=== PATIENT | female | born 1955 | race Caucasian/White ===

== ENCOUNTER → 2017-10-04 | Outpatient (CLI) | payer OTHER ==
[2013-12-05 12:49] VITALS: BP 132/76
== END ==
LOC: RAD 14:33
PROVIDERS: ATTEND Internal Medicine
DX: I20.9 Angina pectoris, unspecified (principal); R06.02 Shortness of breath; R42 Dizziness and giddiness; Z95.5 Presence of coronary angioplasty implant and graft; R51 Headache
CPT/HCPCS: 93306

== ENCOUNTER → 2017-10-09 | Outpatient (CLI) | payer OTHER ==
[2013-12-05 12:49] VITALS: BP 132/76
--- NOTE | 2017-10-09 16:17 | MRI ---
MRI BRAIN WITHOUT AND WITH CONTRAST CLINICAL HISTORY: 61-year-old female with headache and dizziness with giddiness. COMPARISON: None. TECHNIQUE: Multiplanar, multisequence MR images of the brain were obtained prior to and following th e uneventful intravenous administration of 18 mL Omniscan. FINDINGS: There is no evidence of diffusion restriction. The craniocervical junction is normal. Pituitary and o ptic nerve complex are normal. There are few scattered punctate T2 FLAIR signal hyperintensities are present within the periventricular and supraventricular white matter that are nonspecific in appearan ce but most likely to represent microvascular white matter ischemic changes. Normal signal characteri stics and morphology are demonstrated within the cerebral cortex, corpus callosum, deep chilel nuclei, brainstem and cerebellum. The major vascular channels opacify normally and the major vascular flow vo ids, to include the dural venous sinuses, are intact. No abnormal susceptibility on gradient imaging. Age advanced cortical volume loss is present, with commensurate sulcal and ventricular prominence. T he basilar cisterns are normal. There is no evidence of abnormal intracranial enhancement. The orbits and globes are within normal limits. The paranasal sinuses, tympanic cavities and mastoids are clear. IMPRESSION: 1. No acute ischemic or hemorrhagic insult. 2. No abnormal intracranial enhancement. 3. Mild, chronic microvascular white matter ischemic disease with associated volume loss. Reported By:
== END ==
LOC: RAD 13:47
PROVIDERS: ATTEND Internal Medicine
DX: R42 Dizziness and giddiness (principal); R51 Headache
CPT/HCPCS: 70553

== ENCOUNTER 2019-03-27 15:31 | Inpatient (IN) ==
[2019-03-27] MEDS ORDERED: TUSSIONEX PENNKINETIC SUSP PO PRN (17:20)
[2019-03-27 17:29] VITALS: BMI 31.4
[2019-03-27] MEDS: DUONEB 0.5 MG/3 MG NEB SCH ×2 (17:34→20:45)
[2019-03-27 17:59] LABS: BASOPHILS # (AUTO) 0.1 X10^3/uL (0.0-0.1); EOSINOPHILS # (AUTO) 0.5 x10^3/uL (0.0-0.2); EOSINOPHILS % (AUTO) 8.9 % (0.9-2.9); HEMATOCRIT 29.9 % (36.0-47.0); HEMOGLOBIN 9.9 g/dL (12.0-16.0); LYMPHOCYTES # (AUTO) 2.3 X10^3/uL (1.3-2.9); LYMPHOCYTES % (AUTO) 37.5 % (21.0-51.0); MEAN CORPUSCULAR HEMOGLOBIN 27.9 pg (27.0-34.0); MEAN CORPUSCULAR HGB CONC 33.3 g/dL (33.0-35.0); MEAN CORPUSCULAR VOLUME 83.8 fL (80.0-100.0); MONOCYTES # (AUTO) 0.5 x10^3/uL (0.3-0.8); MONOCYTES % (AUTO) 8.5 % (0.0-13.0); NEUTROPHILS # (AUTO) 2.7 x10^3/uL (2.2-4.8); NEUTROPHILS % (AUTO) 44.1 % (42.0-75.0); PLATELET COUNT 227 X10^3/uL (150.0-450.0); RED BLOOD COUNT 3.57 X10^6/uL (3.5-5.4); RED CELL DISTRIBUTION WIDTH 17.5 % (11.6-16.5)
[2019-03-27] MEDS ORDERED: LEVAQUIN PREMIX IV 750 MG 750 MG/150 ML BAG IV SCH (18:00)
[2019-03-27] MEDS ORDERED: FORTAZ or TAZICEF VIAL INJ 1 G in NS 100 ML IV + SPIKE MINIBAG* 100 ML IV SCH (18:00)
[2019-03-27 18:13] LABS: ALANINE AMINOTRANSFERASE 17 Units/L (12-78); ALBUMIN 3.4 g/dL (3.4-5.0); ALKALINE PHOSPHATASE 63 Units/L (46-116); ASPARTATE AMINO TRANSFERASE 16 Units/L (15-37); BLOOD UREA NITROGEN 15 mg/dL (7-18); CALCIUM 8.4 mg/dL (8.5-10.1); CARBON DIOXIDE 21.3 mmol/L (21-32); CHLORIDE 107 mmol/L (98-107); COR NA(FOR HYPERGLY) 141 mmol/L (136-145); CREATININE 1.37 mg/dL (0.55-1.02); SODIUM 140 mmol/L (136-145); TOTAL PROTEIN 7.4 g/dL (6.4-8.2); eGFR NON BLACK RACES 42 (>60)
[2019-03-27] MEDS ORDERED: NS 1/2 1000 ML IV 1,000 ML IV ONE (18:14)
[2019-03-27] MEDS: SOLU-Medrol 40 MG VIAL IVP SCH ×2 (18:30→21:03)
[2019-03-27] MEDS: NS 1/2 1000 ML IV 1,000 ML IV SCH (18:30)
[2019-03-27] MEDS: ROBITUSSIN DM PO SCH ×2 (18:35→20:12)
[2019-03-27] MEDS: VSL#3 PO SCH (18:36)
[2019-03-27] MEDS ORDERED: RESTORIL CAP 15 MG PO PRN (18:41)
[2019-03-27] MEDS: LEVAQUIN PREMIX IV 750 MG 750 MG/150 ML BAG IV SCH (19:16)
[2019-03-27] MEDS: COLACE CAP 100 MG PO SCH (20:11)
[2019-03-27] MEDS: MILK OF MAGNESIA PO SCH (20:12)
[2019-03-28] MEDS: DUONEB 0.5 MG/3 MG NEB SCH (00:39)
[2019-03-28] MEDS ORDERED: TYLENOL 325 MG TAB PO PRN (00:55)
[2019-03-28 05:01] LABS: BASOPHILS % (AUTO) 0.5 % (0.2-1.0); EOSINOPHILS % (AUTO) 0.1 % (0.9-2.9); HEMATOCRIT 27.9 % (36.0-47.0); HEMOGLOBIN 9.2 g/dL (12.0-16.0); LYMPHOCYTES # (AUTO) 0.6 X10^3/uL (1.3-2.9); LYMPHOCYTES % (AUTO) 15.3 % (21.0-51.0); MEAN CORPUSCULAR HEMOGLOBIN 27.9 pg (27.0-34.0); MEAN CORPUSCULAR VOLUME 84.5 fL (80.0-100.0); MEAN PLATELET VOLUME 7.1 fL (7.4-11.0); MONOCYTES # (AUTO) 0.1 x10^3/uL (0.3-0.8); MONOCYTES % (AUTO) 2.2 % (0.0-13.0); NEUTROPHILS % (AUTO) 81.9 % (42.0-75.0); PLATELET COUNT 218 X10^3/uL (150.0-450.0); RED CELL DISTRIBUTION WIDTH 17.3 % (11.6-16.5); WHITE BLOOD COUNT 3.7 X10^3/uL (3.6-10.0)
[2019-03-28 05:09] LABS: ALBUMIN 3.3 g/dL (3.4-5.0); CALCIUM 8.4 mg/dL (8.5-10.1); CARBON DIOXIDE 19.1 mmol/L (21-32); CREATININE 1.35 mg/dL (0.55-1.02); TOTAL PROTEIN 7.3 g/dL (6.4-8.2)
[2019-03-28] MEDS: SOLU-Medrol 40 MG VIAL IVP SCH ×3 (05:09→21:04)
[2019-03-28] MEDS ORDERED: POTASSIUM CHL 60 MEQ/NS 0.45% 500 ML IV PRN (05:41)
[2019-03-28] MEDS ORDERED: K-RIDER 10 MEQ/NS 100 ML 10 MEQ/100 ML BAG IV PRN (05:41)
[2019-03-28] MEDS ORDERED: POTASSIUM CHL 40 MEQ/NS 0.45% 500 ML IV PRN (05:41)
[2019-03-28] MEDS ORDERED: KLOR-CON PO PRN (05:41)
[2019-03-28] MEDS ORDERED: POTASSIUM CHLORIDE LIQ 20 MEQ UDC PO PRN (05:41)
[2019-03-28] MEDS ORDERED: MAGNESIUM SULFATE 1 GRAM/100 mL PREMIX 1 GM/100 ML BAG IV PRN (05:41)
[2019-03-28] MEDS ORDERED: MICRO K EXTEN CAP 10 MEQ PO PRN (05:41)
[2019-03-28] MEDS: K-DUR TAB 20 MEQ PO PRN (05:55)
--- NOTE | 2019-03-28 06:10 | RAD ---
CHEST RADIOGRAPHS PA AND LATERAL VIEWS CLINICAL HISTORY: 63-year-old female with pneumonia and cough for 2-3 weeks. History of asthma. COMPARISON: Chest radiograph 03/10/2019. FINDINGS: The cardiopericardial silhouette is stable with mild prominence of the interstitium and perihilar lung markings. There is no focal consolidation, pleural effusion or pneumothorax. The lungs are well inflated. Pulmonary vascularity is normal. Imaged osseous structures are intact. Soft tissues are unremarkable. IMPRESSION: No acute cardiopulmonary process with findings consistent with history of asthma. Reported By:
--- NOTE | 2019-03-28 06:50 | RAD ---
HISTORY: 63-year-old female with shortness of breath. History of asthma. Study: Frontal view of the chest. Comparison: Chest radiographs 03/28/2019, 19 minutes ago. Findings: The trachea is midline. The cardiac silhouette is stable with stable findings consistent with history of asthma. The lungs are clear without focal consolidation, effusion or pneumothorax. Soft tissues are unremarkable. Osseous structures are unremarkable. IMPRESSION: 1. No acute cardiopulmonary disease in a patient with history of asthma. Reported By:
[2019-03-28] MEDS: XOPENEX 1.25 MG/3 ML NEBULE NEB SCH ×3 (08:27→17:14)
[2019-03-28] MEDS: MILK OF MAGNESIA PO SCH ×2 (08:54→21:05)
[2019-03-28] MEDS: ROBITUSSIN DM PO SCH ×4 (08:54→21:05)
[2019-03-28] MEDS: VSL#3 PO SCH (08:54)
[2019-03-28] MEDS: FORTAZ or TAZICEF VIAL INJ 1 G in NS 100 ML IV + SPIKE MINIBAG* 100 ML IV SCH ×2 (08:56→21:04)
[2019-03-28] MEDS ORDERED: NS 1/2 1000 ML IV 1,000 ML IV ONE (08:58)
[2019-03-28] MEDS: NS 1/2 1000 ML IV 1,000 ML IV SCH (08:59)
[2019-03-28] MEDS ORDERED: DUONEB 0.5 MG/3 MG NEB SCH (09:00)
--- NOTE | 2019-03-28 11:29 | DR.UPDATE ---
H&P Update History and Physical Update: History and Physical reviewed and patient examined. Changes noted: Yes with the following: WAS SEEN IN THE OFFICE TODAY FOR COMPLAINTS OF PERSISTENT, PRODUCTIVE COUGH AND SHORTNESS OF BREATH. SHE HAS BEEN TAKING CIPRO 500MG PO X 2 WEEKS WITHOUT IMPROVMEENT IN SYMPTOMS. SHE WAS ADMITTED FOR [facility] EVALUATION AND TREATMENT OF BRONCHOPNEUMONIA. ON ADMISSION, WE WILL START THE PNEUMONIA PROTOCOL WITH IV FORTAZ, IV LEVAQUIN, RESPIRATORY TREATMENTS, SUPPLEMENTAL OXYGEN. WE WILL OBTAIN LABS, CHEST XRAY, BLOOD AND SPUTUM CULTURES. OTHERWISE, WE WILL REPEAT AM LABS AND CHEST XRAY AND CONTINUE TO MONITOR. Prescription drug monitoring program results: PDMP was not reviewed H&P Reviewed: Yes Patient was examined?: Yes
[2019-03-28] MEDS ORDERED: CARDIZEM CD 120 MG 24-HR PO ONE (11:33)
[2019-03-28] MEDS ORDERED: NexIUM ONE (11:33)
[2019-03-28] MEDS ORDERED: NORCO 10/325 TAB ONE (11:33)
[2019-03-28] MEDS: CARDIZEM CD 120 MG 24-HR PO SCH (11:34)
[2019-03-28] MEDS: NORCO 10/325 TAB PO SCH ×2 (12:00→18:15)
[2019-03-28] MEDS: NexIUM PO SCH (12:01)
[2019-03-28] MEDS: VALIUM PO SCH ×3 (12:10→21:05)
[2019-03-28] MEDS: NEURONTIN CAP 300 MG PO SCH ×2 (14:49→21:05)
[2019-03-28] MEDS: LOVENOX INJ 40 MG SYR SC SCH (14:52)
[2019-03-28] MEDS: LEVAQUIN PREMIX IV 750 MG 750 MG/150 ML BAG IV SCH (18:16)
[2019-03-28] MEDS ORDERED: ZOCOR TAB 40 MG PO SCH (21:00)
[2019-03-28] MEDS: COLACE CAP 100 MG PO SCH (21:05)
--- NOTE | 2019-03-28 21:09 | PCM.PROG ---
Progress Note - Progress Note for Day of Date of Exam: 03/28/19 - Subjective Subjective: IS BEING TREATED FOR BRONCHOPNEUMONIA. TODAY, SHE IS ALERT AND ORIENTED, LYING IN BED ON MORNING ROUNDS. SHE CONTINUES WITH COMPLAINTS OF SHORTNESS OF BREATH AND COUGH, BUT REPORTS SLIGHT IMPROVEMENT IN SYMPTOMS SINCE YESTERDAY. ON EXAMINATION, HEART IS REGULAR IN RATE AND RHYTHM. BILATERAL LUNGS ARE NOTED WITH DIMINISHED LUNG SOUNDS THROUGHOUT. ABDOMEN IS ROUND, SOFT, AND NON-TENDER WITH NORMAL BOWEL SOUNDS NOTED IN ALL QUADRANTS. HER VITALS THIS MORNING ARE: 98.7-103-20-98%-135/58. LABS WERE OBTAINED. ABNORMAL LAB VALUES INCLUDE THE FOLLOWING: RBC 3.30, HGB 9.2, HCT 27.9, POTASSIUM 3.3, CARBON DIOXIDE 19.1, CREATININE 1.35, GLUCOSE 190, CALCIUM 8.4, ALBUMIN 3.3. BLOOD AND SPUTUM CULTURES ARE PENDING. A CHEST XRAY WAS OBTAINED AND REVEALED: No acute cardiopulmonary disease in a patient with history of asthma. SHE IS CURRENTLY RECEIVING LEVAQUIN 750MG IV DAILY, FORTAZ 1G IV Q8H, SOLU-MEDROL 80MG IV Q8H, RESPIRATORY TX, AND 1/2NS AT 75ML/HR. WE WILL CONTINUE WITH CURRENT PLAN OF CARE TODAY AND START VALIUM 5MG PO TID. OTHERWISE, WE WILL FOLLOW UP WITH AM LABS AND CONTINUE TO MONITOR. - Past Medical Family Social History Past Med/Fam/Surg Hx: No changes since H&P Allergies: Allergies ketorolac [From Toradol] Allergy (Verified 03/10/19 16:54) metoclopramide [From Reglan] Allergy (Verified 03/10/19 16:54) tramadol Allergy (Verified 03/10/19 16:54) - Review of Systems ROS: No change since H&P - Vital Signs and I&O's Vital Signs: Temperature 98.8 F Pulse Rate [Left Brachial] 95 Pulse Rate 84 Respiratory Rate 16 Blood Pressure [Right Arm] 133/62 Blood Pressure [Left Arm] 116/56 Blood Pressure 142/63 O2 Sat by Pulse Oximetry 99 Intake and Output: Intake & Output 03/26/19 03/27/19 03/28/19 03/29/19 11:59 11:59 11:59 11:59 Intake Total 1455 / 1455 1396 / 1396 Output Total 1500 / 1500 Balance 1455 / 1455 -104 / -104 - Physical Exam Oriented: Normal Eyes: Normal Ear: Normal Nose: Normal Throat: Normal Respiratory: Generalized, Wheezes Cardiovascular: Normal : Normal Auscultation: Bowel Sounds: Normal Palpation: Normal Tenderness: Normal Skin: Normal Musculoskeletal: Normal Psychiatric: Anxiety Mood Description: Anxious Affect: Anxious Speech Pattern: Clear, Appropriate - Laboratory and Diagnostics Result Diagrams: 03/28/19 04:03 03/28/19 08:20 Labs: 03/27/19 16:56 Sputum - Expectorated Sputum Sputum Culture - Preliminary 03/27/19 16:56 Sputum - Expectorated Sputum - Final Laboratory WBC 3.7 X10^3/uL (3.6-10.0) 03/28/19 04:03 RBC 3.30 X10^6/uL (3.5-5.4) L 03/28/19 04:03 Hgb 9.2 g/dL (12.0-16.0) L 03/28/19 04:03 Hct 27.9 % (36.0-47.0) L 03/28/19 04:03 MCV 84.5 fL (80.0-100.0) 03/28/19 04:03 MCH 27.9 pg (27.0-34.0) 03/28/19 04:03 MCHC 33.0 g/dL (33.0-35.0) 03/28/19 04:03 RDW 17.3 % (11.6-16.5) H 03/28/19 04:03 Plt Count 218 X10^3/uL (150.0-450.0) 03/28/19 04:03 MPV 7.1 fL (7.4-11.0) L 03/28/19 04:03 Neut % (Auto) 81.9 % (42.0-75.0) H 03/28/19 04:03 Lymph % (Auto) 15.3 % (21.0-51.0) L 03/28/19 04:03 [place] % (Auto) 2.2 % (0.0-13.0) 03/28/19 04:03 Eos % (Auto) 0.1 % (0.9-2.9) L 03/28/19 04:03 Baso % (Auto) 0.5 % (0.2-1.0) 03/28/19 04:03 Neut # (Auto) 3.0 x10^3/uL (2.2-4.8) 03/28/19 04:03 Lymph # (Auto) 0.6 X10^3/uL (1.3-2.9) L 03/28/19 04:03 [place] # (Auto) 0.1 x10^3/uL (0.3-0.8) L 03/28/19 04:03 Eos # (Auto) 0.0 x10^3/uL (0.0-0.2) 03/28/19 04:03 Baso # (Auto) 0.0 X10^3/uL (0.0-0.1) 03/28/19 04:03 Absolute Nucleated RBC 0.1 /100WBC 03/28/19 04:03 Sodium 140 mmol/L (136-145) 03/28/19 04:03 Corrected Sodium 142 mmol/L (136-145) 03/28/19 04:03 Potassium 3.8 mmol/L (3.5-5.1) 03/28/19 08:20 Chloride 105 mmol/L (98-107) 03/28/19 04:03 Carbon Dioxide 19.1 mmol/L (21-32) L 03/28/19 04:03 BUN 12 mg/dL (7-18) 03/28/19 04:03 Creatinine 1.35 mg/dL (0.55-1.02) H 03/28/19 04:03 Est GFR (MDRD) Af Amer 51 (>60) L 03/28/19 04:03 Est GFR (MDRD) Non-Af 42 (>60) L 03/28/19 04:03 Glucose 190 mg/dL (65-99) H 03/28/19 04:03 Calcium 8.4 mg/dL (8.5-10.1) L 03/28/19 04:03 Corrected Calcium 9.0 mg/dL (8.5-10.1) 03/28/19 04:03 Magnesium 1.9 mg/dL (1.7-2.9) 03/28/19 04:03 Total Bilirubin 0.20 mg/dL (0.2-1.0) 03/28/19 04:03 AST 17 Units/L (15-37) 03/28/19 04:03 ALT 17 Units/L (12-78) 03/28/19 04:03 Alkaline Phosphatase 56 Units/L (46-116) 03/28/19 04:03 Total Protein 7.3 g/dL (6.4-8.2) 03/28/19 04:03 Albumin 3.3 g/dL (3.4-5.0) L 03/28/19 04:03 Globulin 4.0 g/dL (2.5-4.5) 03/28/19 04:03 Albumin/Globulin Ratio 0.8 Ratio (1.1-2.1) L 03/28/19 04:03 - Plan (1) Bronchopneumonia Status: Acute Plan: LEVAQUIN IV, FORTAZ IV, SOLU-MEDROL IV, RESPIRATORY TX, SUPPLEMENTAL OXYGEN, CONTINUE TO MONITOR.
[2019-03-29] MEDS: XOPENEX 1.25 MG/3 ML NEBULE NEB SCH ×4 (00:50→17:10)
[2019-03-29] MEDS ORDERED: NS 1/2 1000 ML IV 1,000 ML IV ONE ×2 (01:19→23:31)
[2019-03-29] MEDS: NORCO 10/325 TAB PO SCH ×4 (01:21→17:05)
[2019-03-29] MEDS: NS 1/2 1000 ML IV 1,000 ML IV SCH ×3 (01:22→23:37)
[2019-03-29 04:52] LABS: BASOPHILS % (AUTO) 0 % (0.2-1.0); HEMATOCRIT 26.6 % (36.0-47.0); HEMOGLOBIN 8.8 g/dL (12.0-16.0); LYMPHOCYTES # (AUTO) 1.1 X10^3/uL (1.3-2.9); LYMPHOCYTES % (AUTO) 8.6 % (21.0-51.0); MEAN CORPUSCULAR HEMOGLOBIN 27.8 pg (27.0-34.0); MEAN CORPUSCULAR HGB CONC 32.9 g/dL (33.0-35.0); MEAN CORPUSCULAR VOLUME 84.3 fL (80.0-100.0); MEAN PLATELET VOLUME 7.5 fL (7.4-11.0); MONOCYTES # (AUTO) 0.5 x10^3/uL (0.3-0.8); NEUTROPHILS # (AUTO) 11.7 x10^3/uL (2.2-4.8); NEUTROPHILS % (AUTO) 87.4 % (42.0-75.0); PLATELET COUNT 234 X10^3/uL (150.0-450.0); RED BLOOD COUNT 3.16 X10^6/uL (3.5-5.4); RED CELL DISTRIBUTION WIDTH 17.8 % (11.6-16.5)
[2019-03-29] MEDS: NEURONTIN CAP 300 MG PO SCH ×3 (04:59→21:04)
[2019-03-29] MEDS: SOLU-Medrol 40 MG VIAL IVP SCH ×3 (05:00→21:04)
[2019-03-29] MEDS: VALIUM PO SCH ×3 (05:00→21:04)
[2019-03-29 05:01] LABS: ALANINE AMINOTRANSFERASE 17 Units/L (12-78); ALBUMIN 3.2 g/dL (3.4-5.0); ALKALINE PHOSPHATASE 48 Units/L (46-116); ASPARTATE AMINO TRANSFERASE 15 Units/L (15-37); BLOOD UREA NITROGEN 13 mg/dL (7-18); CALCIUM 8.1 mg/dL (8.5-10.1); CARBON DIOXIDE 22.9 mmol/L (21-32); CHLORIDE 107 mmol/L (98-107); COR CA(FOR HYPOALB) 8.7 mg/dL (8.5-10.1); COR NA(FOR HYPERGLY) 141 mmol/L (136-145); CREATININE 1.11 mg/dL (0.55-1.02); SODIUM 140 mmol/L (136-145); TOTAL PROTEIN 6.7 g/dL (6.4-8.2); eGFR NON BLACK RACES 53 (>60)
[2019-03-29 06:10] LABS: WHITE BLOOD COUNT 13.4 X10^3/uL (3.6-10.0)
--- NOTE | 2019-03-29 06:16 | RAD ---
HISTORY: Shortness of breath Study: Single view chest Comparison: 03/28/2019 Findings: Single upright portable view is submitted. No infiltrate, effusion or pneumothorax identified. The cardiac and mediastinal contours are within normal limits. The soft tissues are unremarkable. IMPRESSION: 1. No acute cardiopulmonary abnormality. Reported By:
[2019-03-29] MEDS: NexIUM PO SCH (08:50)
[2019-03-29] MEDS: CARDIZEM CD 120 MG 24-HR PO SCH (08:51)
[2019-03-29] MEDS: MILK OF MAGNESIA PO SCH ×2 (08:51→20:46)
[2019-03-29] MEDS: VSL#3 PO SCH (08:51)
[2019-03-29] MEDS: ROBITUSSIN DM PO SCH ×4 (08:52→20:46)
[2019-03-29] MEDS: FORTAZ or TAZICEF VIAL INJ 1 G in NS 100 ML IV + SPIKE MINIBAG* 100 ML IV SCH ×2 (08:52→20:47)
[2019-03-29] MEDS: LOVENOX INJ 40 MG SYR SC SCH (08:53)
[2019-03-29] MEDS: LEVAQUIN PREMIX IV 750 MG 750 MG/150 ML BAG IV SCH (08:53)
[2019-03-29] MEDS: PHENERGAN TAB 25 MG PO PRN (17:05)
[2019-03-29] MEDS: COLACE CAP 100 MG PO SCH (20:46)
[2019-03-30] MEDS: XOPENEX 1.25 MG/3 ML NEBULE NEB SCH ×4 (00:33→17:37)
[2019-03-30] MEDS: NS 1/2 1000 ML IV 1,000 ML IV SCH ×2 (02:58→17:09)
[2019-03-30 05:37] LABS: BASOPHILS % (AUTO) 0 % (0.2-1.0); HEMATOCRIT 25.7 % (36.0-47.0); HEMOGLOBIN 8.5 g/dL (12.0-16.0); LYMPHOCYTES % (AUTO) 9.3 % (21.0-51.0); MEAN CORPUSCULAR HEMOGLOBIN 28.2 pg (27.0-34.0); MEAN CORPUSCULAR VOLUME 85.3 fL (80.0-100.0); MEAN PLATELET VOLUME 7.7 fL (7.4-11.0); MONOCYTES # (AUTO) 0.3 x10^3/uL (0.3-0.8); MONOCYTES % (AUTO) 3.1 % (0.0-13.0); NEUTROPHILS # (AUTO) 9.8 x10^3/uL (2.2-4.8); NEUTROPHILS % (AUTO) 87.6 % (42.0-75.0); PLATELET COUNT 230 X10^3/uL (150.0-450.0); RED BLOOD COUNT 3.01 X10^6/uL (3.5-5.4); RED CELL DISTRIBUTION WIDTH 17.6 % (11.6-16.5); WHITE BLOOD COUNT 11.2 X10^3/uL (3.6-10.0)
[2019-03-30 05:51] LABS: ALANINE AMINOTRANSFERASE 12 Units/L (12-78); ALKALINE PHOSPHATASE 44 Units/L (46-116); ASPARTATE AMINO TRANSFERASE 13 Units/L (15-37); BLOOD UREA NITROGEN 16 mg/dL (7-18); CALCIUM 7.8 mg/dL (8.5-10.1); CARBON DIOXIDE 25.6 mmol/L (21-32); CHLORIDE 106 mmol/L (98-107); COR CA(FOR HYPOALB) 8.6 mg/dL (8.5-10.1); COR NA(FOR HYPERGLY) 141 mmol/L (136-145); CREATININE 0.94 mg/dL (0.55-1.02); SODIUM 140 mmol/L (136-145); TOTAL PROTEIN 6.3 g/dL (6.4-8.2); eGFR NON BLACK RACES > 60 (>60)
[2019-03-30] MEDS: NEURONTIN CAP 300 MG PO SCH ×3 (05:53→21:48)
[2019-03-30] MEDS: SOLU-Medrol 40 MG VIAL IVP SCH ×2 (05:53→13:16)
[2019-03-30] MEDS: NORCO 10/325 TAB PO SCH ×4 (05:53→17:07)
[2019-03-30] MEDS: VALIUM PO SCH ×3 (05:53→21:49)
[2019-03-30] MEDS: FORTAZ or TAZICEF VIAL INJ 1 G in NS 100 ML IV + SPIKE MINIBAG* 100 ML IV SCH ×2 (09:51→21:49)
[2019-03-30] MEDS: MILK OF MAGNESIA PO SCH ×2 (09:51→21:49)
[2019-03-30] MEDS: LOVENOX INJ 40 MG SYR SC SCH (09:52)
[2019-03-30] MEDS: CARDIZEM CD 120 MG 24-HR PO SCH (09:52)
[2019-03-30] MEDS: VSL#3 PO SCH (09:52)
[2019-03-30] MEDS: ROBITUSSIN DM PO SCH ×4 (09:52→21:49)
[2019-03-30] MEDS: NexIUM PO SCH (09:57)
[2019-03-30] MEDS ORDERED: NS 1/2 1000 ML IV 1,000 ML IV ONE (17:06)
[2019-03-30] MEDS: COLACE CAP 100 MG PO SCH (21:49)
[2019-03-31] MEDS: XOPENEX 1.25 MG/3 ML NEBULE NEB SCH ×4 (00:10→17:14)
[2019-03-31] MEDS: NORCO 10/325 TAB PO SCH ×4 (01:23→18:06)
[2019-03-31] MEDS: PHENERGAN TAB 25 MG PO PRN ×2 (01:34→09:23)
[2019-03-31] MEDS ORDERED: NS 1/2 1000 ML IV 1,000 ML IV ONE (03:45)
[2019-03-31] MEDS: NS 1/2 1000 ML IV 1,000 ML IV SCH ×3 (04:52→21:36)
[2019-03-31 05:27] LABS: BASOPHILS % (AUTO) 0 % (0.2-1.0); HEMATOCRIT 25.1 % (36.0-47.0); HEMOGLOBIN 8.3 g/dL (12.0-16.0); LYMPHOCYTES # (AUTO) 1.2 X10^3/uL (1.3-2.9); LYMPHOCYTES % (AUTO) 14.9 % (21.0-51.0); MEAN CORPUSCULAR HGB CONC 32.9 g/dL (33.0-35.0); MEAN PLATELET VOLUME 7.8 fL (7.4-11.0); MONOCYTES # (AUTO) 0.6 x10^3/uL (0.3-0.8); MONOCYTES % (AUTO) 7.7 % (0.0-13.0); NEUTROPHILS # (AUTO) 6.4 x10^3/uL (2.2-4.8); NEUTROPHILS % (AUTO) 77.4 % (42.0-75.0); PLATELET COUNT 235 X10^3/uL (150.0-450.0); RED BLOOD COUNT 2.95 X10^6/uL (3.5-5.4); RED CELL DISTRIBUTION WIDTH 17.9 % (11.6-16.5); WHITE BLOOD COUNT 8.3 X10^3/uL (3.6-10.0)
[2019-03-31 05:46] LABS: ALANINE AMINOTRANSFERASE 13 Units/L (12-78); ALBUMIN 2.8 g/dL (3.4-5.0); ALKALINE PHOSPHATASE 39 Units/L (46-116); ASPARTATE AMINO TRANSFERASE 11 Units/L (15-37); BLOOD UREA NITROGEN 19 mg/dL (7-18); CALCIUM 7.4 mg/dL (8.5-10.1); CARBON DIOXIDE 26.7 mmol/L (21-32); CHLORIDE 106 mmol/L (98-107); COR CA(FOR HYPOALB) 8.4 mg/dL (8.5-10.1); COR NA(FOR HYPERGLY) 140 mmol/L (136-145); CREATININE 0.94 mg/dL (0.55-1.02); SODIUM 140 mmol/L (136-145); eGFR NON BLACK RACES > 60 (>60)
[2019-03-31] MEDS: NEURONTIN CAP 300 MG PO SCH ×3 (06:26→21:38)
[2019-03-31] MEDS: VALIUM PO SCH ×3 (06:27→21:38)
--- NOTE | 2019-03-31 08:52 | RAD ---
Exam: Chest two views History: 63-year-old female with pneumonia Comparison: Previous chest radiograph from 03/30/2019. Findings: Heart size and pulmonary vasculature are normal. Lungs are clear with no infiltrate or significant effusion on either side. Bony thorax is unremarkable as well. Impression: No acute cardiopulmonary abnormality is seen on this exam Reported By:
[2019-03-31] MEDS: FORTAZ or TAZICEF VIAL INJ 1 G in NS 100 ML IV + SPIKE MINIBAG* 100 ML IV SCH ×2 (09:07→21:37)
[2019-03-31] MEDS: LEVAQUIN PREMIX IV 750 MG 750 MG/150 ML BAG IV SCH (09:08)
[2019-03-31] MEDS: NexIUM PO SCH (09:09)
[2019-03-31] MEDS: ROBITUSSIN DM PO SCH ×4 (09:09→21:37)
[2019-03-31] MEDS: MILK OF MAGNESIA PO SCH ×2 (09:09→21:37)
[2019-03-31] MEDS: VSL#3 PO SCH (09:09)
[2019-03-31] MEDS: CARDIZEM CD 120 MG 24-HR PO SCH (09:09)
[2019-03-31] MEDS: LOVENOX INJ 40 MG SYR SC SCH (09:10)
--- NOTE | 2019-03-31 12:47 | PCM.PROG ---
Progress Note - Progress Note for Day of Date of Exam: 03/29/19 - Subjective Subjective: IS BEING TREATED FOR BRONCHOPNEUMONIA. TODAY, SHE IS ALERT AND ORIENTED, LYING IN BED ON MORNING ROUNDS. SHE CONTINUES WITH COMPLAINTS OF SHORTNESS OF BREATH AND COUGH, BUT REPORTS SLIGHT IMPROVEMENT IN SYMPTOMS SINCE YESTERDAY. ON EXAMINATION, HEART IS REGULAR IN RATE AND RHYTHM. BILATERAL LUNGS ARE NOTED WITH DIMINISHED LUNG SOUNDS THROUGHOUT. ABDOMEN IS ROUND, SOFT, AND NON-TENDER WITH NORMAL BOWEL SOUNDS NOTED IN ALL QUADRANTS. HER VITALS THIS MORNING ARE: 98.2-100-22-97%-127/60. LABS WERE OBTAINED. ABNORMAL LAB VALUES INCLUDE THE FOLLOWING: WBC 13.4, RBC 3.16, HGB 8.8, HCT 26.6, CREATININE 1.11, GLUCOSE 140, CALCIUM 8.1, ALBUMIN 3.2. BLOOD AND SPUTUM CULTURES ARE PENDING. A CHEST XRAY WAS OBTAINED AND REVEALED: No acute cardiopulmonary abnormality. SHE IS CURRENTLY RECEIVING LEVAQUIN 750MG IV DAILY, FORTAZ 1G IV Q8H, SOLU-MEDROL 80MG IV Q8H, RESPIRATORY TX, AND 1/2NS AT 75ML/HR, VALIUM 5MG PO TID, AND HOME MEDICATIONS WERE RESUMED. WE WILL CONTINUE WITH CURRENT PLAN OF CARE TODAY. OTHERWISE, WE WILL FOLLOW UP WITH AM LABS AND CONTINUE TO MONITOR. - Past Medical Family Social History Past Med/Fam/Surg Hx: No changes since H&P Allergies: Allergies ketorolac [From Toradol] Allergy (Verified 03/10/19 16:54) metoclopramide [From Reglan] Allergy (Verified 03/10/19 16:54) tramadol Allergy (Verified 03/10/19 16:54) - Review of Systems ROS: No change since H&P - Vital Signs and I&O's Vital Signs: Temperature 98.3 F Pulse Rate [Left Brachial] 60 Pulse Rate 74 Respiratory Rate 18 Blood Pressure [Right Arm] 107/50 Blood Pressure [Left Arm] 116/56 Blood Pressure 142/63 O2 Sat by Pulse Oximetry 95 Intake and Output: Intake & Output 03/29/19 03/30/19 03/31/19 04/01/19 11:59 11:59 11:59 11:59 Intake Total 3498 / 3498 1861 / 1861 2140 / 2140 Output Total 1500 / 1500 Balance 1997 1862 / 1862 2140 / 2140 - Physical Exam Oriented: Normal Eyes: Normal Ear: Normal Nose: Normal Throat: Normal Respiratory: Generalized, Wheezes Cardiovascular: Normal : Normal Auscultation: Bowel Sounds: Normal Palpation: Normal Tenderness: Normal Skin: Normal Musculoskeletal: Normal Psychiatric: Anxiety Mood Description: Anxious Affect: Anxious Speech Pattern: Clear, Appropriate - Laboratory and Diagnostics Result Diagrams: 03/31/19 04:40 03/31/19 04:40 Labs: 03/27/19 16:56 Sputum - Expectorated Sputum Sputum Culture - Final Stenotrophomonas Maltophilia 03/27/19 16:56 Sputum - Expectorated Sputum - Final 03/27/19 17:45 Blood Blood Culture - Preliminary 03/27/19 17:36 Blood Blood Culture - Preliminary Laboratory WBC 8.3 X10^3/uL (3.6-10.0) 03/31/19 04:40 RBC 2.95 X10^6/uL (3.5-5.4) L 03/31/19 04:40 Hgb 8.3 g/dL (12.0-16.0) L 03/31/19 04:40 Hct 25.1 % (36.0-47.0) L 03/31/19 04:40 MCV 85.0 fL (80.0-100.0) 03/31/19 04:40 MCH 28.0 pg (27.0-34.0) 03/31/19 04:40 MCHC 32.9 g/dL (33.0-35.0) L 03/31/19 04:40 RDW 17.9 % (11.6-16.5) H 03/31/19 04:40 Plt Count 235 X10^3/uL (150.0-450.0) 03/31/19 04:40 MPV 7.8 fL (7.4-11.0) 03/31/19 04:40 Neut % (Auto) 77.4 % (42.0-75.0) H 03/31/19 04:40 Lymph % (Auto) 14.9 % (21.0-51.0) L 03/31/19 04:40 [place] % (Auto) 7.7 % (0.0-13.0) 03/31/19 04:40 Eos % (Auto) 0.0 % (0.9-2.9) L 03/31/19 04:40 Baso % (Auto) 0 % (0.2-1.0) L 03/31/19 04:40 Neut # (Auto) 6.4 x10^3/uL (2.2-4.8) H 03/31/19 04:40 Lymph # (Auto) 1.2 X10^3/uL (1.3-2.9) L 03/31/19 04:40 [place] # (Auto) 0.6 x10^3/uL (0.3-0.8) 03/31/19 04:40 Eos # (Auto) 0.0 x10^3/uL (0.0-0.2) 03/31/19 04:40 Baso # (Auto) 0.0 X10^3/uL (0.0-0.1) 03/31/19 04:40 Absolute Nucleated RBC 0.1 /100WBC 03/31/19 04:40 Sodium 140 mmol/L (136-145) 03/31/19 04:40 Corrected Sodium 140 mmol/L (136-145) 03/31/19 04:40 Potassium 3.8 mmol/L (3.5-5.1) 03/31/19 04:40 Chloride 106 mmol/L (98-107) 03/31/19 04:40 Carbon Dioxide 26.7 mmol/L (21-32) 03/31/19 04:40 BUN 19 mg/dL (7-18) H 03/31/19 04:40 Creatinine 0.94 mg/dL (0.55-1.02) 03/31/19 04:40 Est GFR (MDRD) Af Amer > 60 (>60) 03/31/19 04:40 Est GFR (MDRD) Non-Af > 60 (>60) 03/31/19 04:40 Glucose 114 mg/dL (65-99) H 03/31/19 04:40 Calcium 7.4 mg/dL (8.5-10.1) L 03/31/19 04:40 Corrected Calcium 8.4 mg/dL (8.5-10.1) L 03/31/19 04:40 Magnesium 1.9 mg/dL (1.7-2.9) 03/28/19 04:03 Total Bilirubin 0.20 mg/dL (0.2-1.0) 03/31/19 04:40 AST 11 Units/L (15-37) L 03/31/19 04:40 ALT 13 Units/L (12-78) 03/31/19 04:40 Alkaline Phosphatase 39 Units/L (46-116) L 03/31/19 04:40 Total Protein 6.0 g/dL (6.4-8.2) L 03/31/19 04:40 Albumin 2.8 g/dL (3.4-5.0) L 03/31/19 04:40 Globulin 3.2 g/dL (2.5-4.5) 03/31/19 04:40 Albumin/Globulin Ratio 0.9 Ratio (1.1-2.1) L 03/31/19 04:40 - Plan (1) Bronchopneumonia Status: Acute Plan: LEVAQUIN IV, FORTAZ IV, SOLU-MEDROL IV, RESPIRATORY TX, SUPPLEMENTAL OXYGEN, CONTINUE TO MONITOR.
--- NOTE | 2019-03-31 20:14 | PCM.PROG ---
Progress Note - Progress Note for Day of Date of Exam: 03/30/19 - Subjective Subjective: IS BEING TREATED FOR BRONCHOPNEUMONIA. TODAY, SHE IS ALERT AND ORIENTED, LYING IN BED ON MORNING ROUNDS. SHE CONTINUES WITH COMPLAINTS OF SHORTNESS OF BREATH AND COUGH, BUT REPORTS SLIGHT IMPROVEMENT IN SYMPTOMS SINCE YESTERDAY. ON EXAMINATION, HEART IS REGULAR IN RATE AND RHYTHM. BILATERAL LUNGS ARE NOTED WITH DIMINISHED LUNG SOUNDS THROUGHOUT. ABDOMEN IS ROUND, SOFT, AND NON-TENDER WITH NORMAL BOWEL SOUNDS NOTED IN ALL QUADRANTS. HER VITALS THIS MORNING ARE: 98.2-100-22-97%-127/60. LABS WERE OBTAINED. ABNORMAL LAB VALUES INCLUDE THE FOLLOWING: WBC 11.2, RBC 3.01, HGB 8.5, HCT 25.7, GLUCOSE 133, CALCIUM 7.8, AST 13, ALK PHOS 44, TOTAL PROTEIN 6.3, ALBUMIN 3.0. SPUTUM CULTURE REPORTS GROWTH OF STENOTROPHOMONAS MALTOPHILIA. SHE IS CURRENTLY RECEIVING LEVAQUIN 750MG IV DAILY, FORTAZ 1G IV Q8H, SOLU-MEDROL 80MG IV Q8H, RESPIRATORY TX, AND 1/2NS AT 75ML/HR, VALIUM 5MG PO TID, AND HOME MEDICATIONS WERE RESUMED. WE WILL CONTINUE WITH CURRENT PLAN OF CARE TODAY. OTHERWISE, WE WILL FOLLOW UP WITH AM LABS AND CONTINUE TO MONITOR. - Past Medical Family Social History Past Med/Fam/Surg Hx: No changes since H&P Allergies: Allergies ketorolac [From Toradol] Allergy (Verified 03/10/19 16:54) metoclopramide [From Reglan] Allergy (Verified 03/10/19 16:54) tramadol Allergy (Verified 03/10/19 16:54) - Review of Systems ROS: No change since H&P - Vital Signs and I&O's Vital Signs: Temperature 98.4 F Pulse Rate [Left Brachial] 64 Pulse Rate 62 Respiratory Rate 18 Blood Pressure [Right Arm] 141/56 Blood Pressure [Left Arm] 116/56 Blood Pressure 142/63 O2 Sat by Pulse Oximetry 97 Intake and Output: Intake & Output 03/29/19 03/30/19 03/31/19 04/01/19 11:59 11:59 11:59 11:59 Intake Total 3498 / 3498 1862 / 1862 2140 / 2140 1060 / 1060 Output Total 1500 / 1500 Balance 1997 1862 / 1862 2140 / 2140 1060 / 1060 - Physical Exam Oriented: Normal Eyes: Normal Ear: Normal Nose: Normal Throat: Normal Respiratory: Generalized, Wheezes Cardiovascular: Normal : Normal Auscultation: Bowel Sounds: Normal Tenderness: Normal Skin: Normal Musculoskeletal: Normal Psychiatric: Anxiety Mood Description: Anxious Affect: Anxious Speech Pattern: Clear, Appropriate - Laboratory and Diagnostics Result Diagrams: 03/31/19 04:40 03/31/19 04:40 Labs: 03/27/19 16:56 Sputum - Expectorated Sputum Sputum Culture - Final Stenotrophomonas Maltophilia 03/27/19 16:56 Sputum - Expectorated Sputum - Final 03/27/19 17:45 Blood Blood Culture - Preliminary 03/27/19 17:36 Blood Blood Culture - Preliminary Laboratory WBC 8.3 X10^3/uL (3.6-10.0) 03/31/19 04:40 RBC 2.95 X10^6/uL (3.5-5.4) L 03/31/19 04:40 Hgb 8.3 g/dL (12.0-16.0) L 03/31/19 04:40 Hct 25.1 % (36.0-47.0) L 03/31/19 04:40 MCV 85.0 fL (80.0-100.0) 03/31/19 04:40 MCH 28.0 pg (27.0-34.0) 03/31/19 04:40 MCHC 32.9 g/dL (33.0-35.0) L 03/31/19 04:40 RDW 17.9 % (11.6-16.5) H 03/31/19 04:40 Plt Count 235 X10^3/uL (150.0-450.0) 03/31/19 04:40 MPV 7.8 fL (7.4-11.0) 03/31/19 04:40 Neut % (Auto) 77.4 % (42.0-75.0) H 03/31/19 04:40 Lymph % (Auto) 14.9 % (21.0-51.0) L 03/31/19 04:40 [place] % (Auto) 7.7 % (0.0-13.0) 03/31/19 04:40 Eos % (Auto) 0.0 % (0.9-2.9) L 03/31/19 04:40 Baso % (Auto) 0 % (0.2-1.0) L 03/31/19 04:40 Neut # (Auto) 6.4 x10^3/uL (2.2-4.8) H 03/31/19 04:40 Lymph # (Auto) 1.2 X10^3/uL (1.3-2.9) L 03/31/19 04:40 [place] # (Auto) 0.6 x10^3/uL (0.3-0.8) 03/31/19 04:40 Eos # (Auto) 0.0 x10^3/uL (0.0-0.2) 03/31/19 04:40 Baso # (Auto) 0.0 X10^3/uL (0.0-0.1) 03/31/19 04:40 Absolute Nucleated RBC 0.1 /100WBC 03/31/19 04:40 Sodium 140 mmol/L (136-145) 03/31/19 04:40 Corrected Sodium 140 mmol/L (136-145) 03/31/19 04:40 Potassium 3.8 mmol/L (3.5-5.1) 03/31/19 04:40 Chloride 106 mmol/L (98-107) 03/31/19 04:40 Carbon Dioxide 26.7 mmol/L (21-32) 03/31/19 04:40 BUN 19 mg/dL (7-18) H 03/31/19 04:40 Creatinine 0.94 mg/dL (0.55-1.02) 03/31/19 04:40 Est GFR (MDRD) Af Amer > 60 (>60) 03/31/19 04:40 Est GFR (MDRD) Non-Af > 60 (>60) 03/31/19 04:40 Glucose 114 mg/dL (65-99) H 03/31/19 04:40 Calcium 7.4 mg/dL (8.5-10.1) L 03/31/19 04:40 Corrected Calcium 8.4 mg/dL (8.5-10.1) L 03/31/19 04:40 Magnesium 1.9 mg/dL (1.7-2.9) 03/28/19 04:03 Total Bilirubin 0.20 mg/dL (0.2-1.0) 03/31/19 04:40 AST 11 Units/L (15-37) L 03/31/19 04:40 ALT 13 Units/L (12-78) 03/31/19 04:40 Alkaline Phosphatase 39 Units/L (46-116) L 03/31/19 04:40 Total Protein 6.0 g/dL (6.4-8.2) L 03/31/19 04:40 Albumin 2.8 g/dL (3.4-5.0) L 03/31/19 04:40 Globulin 3.2 g/dL (2.5-4.5) 03/31/19 04:40 Albumin/Globulin Ratio 0.9 Ratio (1.1-2.1) L 03/31/19 04:40 - Plan (1) Bronchopneumonia Status: Acute Plan: LEVAQUIN IV, FORTAZ IV, SOLU-MEDROL IV, RESPIRATORY TX, SUPPLEMENTAL OXYGEN, CONTINUE TO MONITOR.
[2019-03-31] MEDS: COLACE CAP 100 MG PO SCH (21:38)
[2019-04-01] MEDS: XOPENEX 1.25 MG/3 ML NEBULE NEB SCH ×2 (00:19→05:41)
[2019-04-01] MEDS: NORCO 10/325 TAB PO SCH ×3 (00:37→13:29)
[2019-04-01 05:14] LABS: BASOPHILS % (AUTO) 0.1 % (0.2-1.0); EOSINOPHILS % (AUTO) 0.1 % (0.9-2.9); HEMATOCRIT 25.8 % (36.0-47.0); HEMOGLOBIN 8.5 g/dL (12.0-16.0); LYMPHOCYTES # (AUTO) 3.5 X10^3/uL (1.3-2.9); LYMPHOCYTES % (AUTO) 45.7 % (21.0-51.0); MEAN CORPUSCULAR HEMOGLOBIN 27.9 pg (27.0-34.0); MEAN CORPUSCULAR HGB CONC 32.8 g/dL (33.0-35.0); MEAN PLATELET VOLUME 7.7 fL (7.4-11.0); MONOCYTES # (AUTO) 0.9 x10^3/uL (0.3-0.8); MONOCYTES % (AUTO) 12.2 % (0.0-13.0); NEUTROPHILS # (AUTO) 3.2 x10^3/uL (2.2-4.8); NEUTROPHILS % (AUTO) 41.9 % (42.0-75.0); PLATELET COUNT 229 X10^3/uL (150.0-450.0); RED BLOOD COUNT 3.04 X10^6/uL (3.5-5.4); RED CELL DISTRIBUTION WIDTH 17.3 % (11.6-16.5); WHITE BLOOD COUNT 7.6 X10^3/uL (3.6-10.0)
[2019-04-01 05:38] LABS: ALANINE AMINOTRANSFERASE 13 Units/L (12-78); ALBUMIN 2.6 g/dL (3.4-5.0); ALKALINE PHOSPHATASE 38 Units/L (46-116); ASPARTATE AMINO TRANSFERASE 11 Units/L (15-37); BLOOD UREA NITROGEN 16 mg/dL (7-18); CALCIUM 7.1 mg/dL (8.5-10.1); CARBON DIOXIDE 28.7 mmol/L (21-32); CHLORIDE 107 mmol/L (98-107); COR CA(FOR HYPOALB) 8.2 mg/dL (8.5-10.1); CREATININE 0.93 mg/dL (0.55-1.02); SODIUM 142 mmol/L (136-145); TOTAL PROTEIN 5.6 g/dL (6.4-8.2); eGFR NON BLACK RACES > 60 (>60)
[2019-04-01] MEDS ORDERED: NS 1/2 1000 ML IV 1,000 ML IV ONE (05:45)
--- NOTE | 2019-04-01 06:06 | RAD ---
HISTORY: Follow-up bronchopneumonia Study: Chest PA and lateral Comparison: 03/31/2019, 03/30/2019 Findings: The heart is within normal limits in size. The ting are normal. The lung matthew are clear. No pleural effusions are identified. The bony thorax is unremarkable. IMPRESSION: No significant abnormality identified Reported By:
[2019-04-01] MEDS: VALIUM PO SCH (06:49)
[2019-04-01] MEDS: NEURONTIN CAP 300 MG PO SCH (06:49)
[2019-04-01] MEDS: K-DUR TAB 20 MEQ PO PRN (06:54)
[2019-04-01] MEDS: MILK OF MAGNESIA PO SCH (08:59)
[2019-04-01] MEDS: ROBITUSSIN DM PO SCH (09:00)
[2019-04-01] MEDS: VSL#3 PO SCH (09:00)
[2019-04-01] MEDS: FORTAZ or TAZICEF VIAL INJ 1 G in NS 100 ML IV + SPIKE MINIBAG* 100 ML IV SCH (09:00)
[2019-04-01] MEDS: NexIUM PO SCH (09:01)
[2019-04-01] MEDS: CARDIZEM CD 120 MG 24-HR PO SCH (09:01)
[2019-04-01] MEDS: LOVENOX INJ 40 MG SYR SC SCH (09:01)
--- NOTE | 2019-04-01 10:14 | PCM.PROG ---
Progress Note - Progress Note for Day of Date of Exam: 03/31/19 - Subjective Subjective: IS BEING TREATED FOR BRONCHOPNEUMONIA. TODAY, SHE IS ALERT AND ORIENTED, LYING IN BED ON MORNING ROUNDS. SHE CONTINUES WITH COMPLAINTS OF SHORTNESS OF BREATH AND COUGH, BUT REPORTS SLIGHT IMPROVEMENT IN SYMPTOMS SINCE YESTERDAY. ON EXAMINATION, HEART IS REGULAR IN RATE AND RHYTHM. BILATERAL LUNGS ARE NOTED WITH DIMINISHED LUNG SOUNDS THROUGHOUT. ABDOMEN IS ROUND, SOFT, AND NON-TENDER WITH NORMAL BOWEL SOUNDS NOTED IN ALL QUADRANTS. HER VITALS THIS MORNING ARE: 98.1-62-20-93%-118/56. LABS WERE OBTAINED. ABNORMAL LAB VALUES INCLUDE THE FOLLOWING: RBC 2.95, HGB 8.3, HCT 25.1, BUN 19, GLUCOSE 114, CALCIUM 7.4, AST 11, ALK PHOS 39, TOTAL PROTEIN 6.0, ALBUMIN 2.8. SPUTUM CULTURE REPORTS GROWTH OF STENOTROPHOMONAS MALTOPHILIA. SHE IS CURRENTLY RECEIVING LEVAQUIN 750MG IV DAILY, FORTAZ 1G IV Q8H, SOLU-MEDROL 80MG IV Q8H, RESPIRATORY TX, AND 1/2NS AT 75ML/HR, VALIUM 5MG PO TID, AND HOME MEDICATIONS WERE RESUMED. WE WILL CONTINUE WITH CURRENT PLAN OF CARE TODAY. OTHERWISE, WE WILL FOLLOW UP WITH AM LABS AND CONTINUE TO MONITOR. - Past Medical Family Social History Past Med/Fam/Surg Hx: No changes since H&P Allergies: Allergies ketorolac [From Toradol] Allergy (Verified 03/10/19 16:54) metoclopramide [From Reglan] Allergy (Verified 03/10/19 16:54) tramadol Allergy (Verified 03/10/19 16:54) - Review of Systems ROS: No change since H&P - Vital Signs and I&O's Vital Signs: Temperature 98.1 F Pulse Rate [Left Brachial] 62 Pulse Rate 62 Respiratory Rate 18 Blood Pressure [Right Arm] 137/63 Blood Pressure [Left Arm] 116/56 Blood Pressure 142/63 O2 Sat by Pulse Oximetry 97 Intake and Output: Intake & Output 03/29/19 03/30/19 03/31/19 04/01/19 11:59 11:59 11:59 11:59 Intake Total 3498 / 3498 1862 / 1862 2140 / 2140 2410 / 2410 Output Total 1500 / 1500 Balance 1998 / 1998 1862 / 1862 2140 / 2140 2410 / 2410 - Physical Exam Oriented: Normal Eyes: Normal Ear: Normal Nose: Normal Throat: Normal Respiratory: Generalized, Wheezes Cardiovascular: Normal : Normal Auscultation: Bowel Sounds: Normal Tenderness: Normal Skin: Normal Musculoskeletal: Normal Psychiatric: Anxiety Mood Description: Anxious Affect: Anxious Speech Pattern: Clear, Appropriate - Laboratory and Diagnostics Result Diagrams: 04/01/19 04:28 04/01/19 04:28 Labs: 03/27/19 16:56 Sputum - Expectorated Sputum Sputum Culture - Final Stenotrophomonas Maltophilia 03/27/19 16:56 Sputum - Expectorated Sputum - Final 03/27/19 17:45 Blood Blood Culture - Preliminary 03/27/19 17:36 Blood Blood Culture - Preliminary Laboratory WBC 7.6 X10^3/uL (3.6-10.0) 04/01/19 04:28 RBC 3.04 X10^6/uL (3.5-5.4) L 04/01/19 04:28 Hgb 8.5 g/dL (12.0-16.0) L 04/01/19 04:28 Hct 25.8 % (36.0-47.0) L 04/01/19 04:28 MCV 85.0 fL (80.0-100.0) 04/01/19 04:28 MCH 27.9 pg (27.0-34.0) 04/01/19 04:28 MCHC 32.8 g/dL (33.0-35.0) L 04/01/19 04:28 RDW 17.3 % (11.6-16.5) H 04/01/19 04:28 Plt Count 229 X10^3/uL (150.0-450.0) 04/01/19 04:28 MPV 7.7 fL (7.4-11.0) 04/01/19 04:28 Neut % (Auto) 41.9 % (42.0-75.0) L 04/01/19 04:28 Lymph % (Auto) 45.7 % (21.0-51.0) 04/01/19 04:28 [place] % (Auto) 12.2 % (0.0-13.0) 04/01/19 04:28 Eos % (Auto) 0.1 % (0.9-2.9) L 04/01/19 04:28 Baso % (Auto) 0.1 % (0.2-1.0) L 04/01/19 04:28 Neut # (Auto) 3.2 x10^3/uL (2.2-4.8) 04/01/19 04:28 Lymph # (Auto) 3.5 X10^3/uL (1.3-2.9) H 04/01/19 04:28 [place] # (Auto) 0.9 x10^3/uL (0.3-0.8) H 04/01/19 04:28 Eos # (Auto) 0.0 x10^3/uL (0.0-0.2) 04/01/19 04:28 Baso # (Auto) 0.0 X10^3/uL (0.0-0.1) 04/01/19 04:28 Absolute Nucleated RBC 0.1 /100WBC 04/01/19 04:28 Sodium 142 mmol/L (136-145) 04/01/19 04:28 Corrected Sodium TNP 04/01/19 04:28 Potassium 3.1 mmol/L (3.5-5.1) L 04/01/19 04:28 Chloride 107 mmol/L (98-107) 04/01/19 04:28 Carbon Dioxide 28.7 mmol/L (21-32) 04/01/19 04:28 BUN 16 mg/dL (7-18) 04/01/19 04:28 Creatinine 0.93 mg/dL (0.55-1.02) 04/01/19 04:28 Est GFR (MDRD) Af Amer > 60 (>60) 04/01/19 04:28 Est GFR (MDRD) Non-Af > 60 (>60) 04/01/19 04:28 Glucose 89 mg/dL (65-99) 04/01/19 04:28 Calcium 7.1 mg/dL (8.5-10.1) L 04/01/19 04:28 Corrected Calcium 8.2 mg/dL (8.5-10.1) L 04/01/19 04:28 Magnesium 1.9 mg/dL (1.7-2.9) 03/28/19 04:03 Total Bilirubin 0.20 mg/dL (0.2-1.0) 04/01/19 04:28 AST 11 Units/L (15-37) L 04/01/19 04:28 ALT 13 Units/L (12-78) 04/01/19 04:28 Alkaline Phosphatase 38 Units/L (46-116) L 04/01/19 04:28 Total Protein 5.6 g/dL (6.4-8.2) L 04/01/19 04:28 Albumin 2.6 g/dL (3.4-5.0) L 04/01/19 04:28 Globulin 3.0 g/dL (2.5-4.5) 04/01/19 04:28 Albumin/Globulin Ratio 0.9 Ratio (1.1-2.1) L 04/01/19 04:28 - Plan (1) Bronchopneumonia Status: Acute Plan: LEVAQUIN IV, FORTAZ IV, SOLU-MEDROL IV, RESPIRATORY TX, SUPPLEMENTAL OXYGEN, CONTINUE TO MONITOR.
[2019-04-01] MEDS: NS 1/2 1000 ML IV 1,000 ML IV SCH (10:20)
[2019-04-01 12:29] VITALS: BP 150/71
== END 2019-04-01 12:40 | disposition home or self-care (01) | DRG 179 ==
LOC: ICU 15:33 → MED/SURG 03-29 10:30
PROVIDERS: ADMIT Internal Medicine; ATTEND Internal Medicine
CPT/HCPCS: 36415; 71010; 71020; 71045; 71046; 80053; 83735; 84132; 85025; 87040; 87070; 87077; 87186; 87205; 94640; 94669; A4222; Q0169; J0713; J1650; J1956; J2920; J7050; J7620